=== PATIENT | female | born 1950 | race Caucasian/White ===

== ENCOUNTER → 2017-06-04 | Outpatient (CLI) | payer OTHER | LOC: BRMIMAGING 13:53 | PROVIDERS: ATTEND Internal Medicine | DX: Z12.31 Encounter for screening mammogram for malignant neoplasm of breast (principal); Z80.3 Family history of malignant neoplasm of breast | CPT/HCPCS: G0202 ==

== ENCOUNTER → 2018-06-17 | Outpatient (CLI) | payer OTHER | LOC: BRMIMAGING 10:37 | PROVIDERS: ATTEND Internal Medicine | DX: Z12.31 Encounter for screening mammogram for malignant neoplasm of breast (principal) ==

== ENCOUNTER → 2018-10-16 | Outpatient (CLI) | payer OTHER | LOC: BRMIMAGING 13:04 | PROVIDERS: ATTEND Internal Medicine | DX: M25.551 Pain in right hip (principal); I87.8 Other specified disorders of veins; Z95.828 Presence of other vascular implants and grafts | CPT/HCPCS: 73502-PO ==